=== PATIENT | male | born 1960 | race Caucasian/White ===

== ENCOUNTER 2018-05-13 21:32 | Emergency (ER) | payer OTHER ==
[~2018-05-13] VITALS: Ht 167.6 cm; Wt 83.9 kg
[2018-05-13 22:00] VITALS: BP_SYST 178
[2018-05-13] MEDS ORDERED: NACL 0.9% 1,000 ML IV ONE ×2 (22:15→23:30)
[2018-05-13 22:48] LABS: BASOPHILS # (AUTO) 0.1 K/uL (0.0-0.2); BASOPHILS % (AUTO) 1.3 % (0.0-2.0); EOSINOPHILS # (AUTO) 0.1 K/uL (0.0-0.4); HEMATOCRIT 42.9 % (36-54); HEMOGLOBIN 14.6 g/dL (14.0-18.0); LYMPHOCYTES # (AUTO) 1.2 K/uL (1.0-5.5); LYMPHOCYTES % (AUTO) 27.5 % (20.5-51.5); MEAN CORPUSCULAR HEMOGLOBIN 35 pg (27-31); MEAN CORPUSCULAR HGB CONC 34 % (32-36); MEAN CORPUSCULAR VOLUME 101 fL (79.0-98.0); MONOCYTES # (AUTO) 0.4 K/uL (0.0-1.0); MONOCYTES % (AUTO) 10.1 % (1.7-9.3); NEUTROPHILS # (AUTO) 2.4 K/uL (1.8-7.7); NEUTROPHILS % (AUTO) 58.1 % (40.0-70.0); PLATELET COUNT (AUTO) 166 K/uL (130-430); RED BLOOD CELL COUNT(AUTO) 4.23 MIL/uL (4.2-6.2); RED CELL DISTRIBUTION WIDTH 11.8 % (9.0-15.0); WHITE BLOOD COUNT (AUTO) 4.2 K/uL (4.8-10.8)
[2018-05-13 22:49] LABS: CREATININE 1.08 mg/dL (0.55-1.30); POTASSIUM 4.1 mmol/L (3.5-5.1)
[2018-05-13] MEDS ORDERED: LORazepam 2 MG/ML VIAL (FOR ER USE) IVP ONE (23:30)
[2018-05-14 01:01] VITALS: BP_SYST 147
== END 2018-05-14 01:01 | disposition home or self-care (01) ==
LOC: SED 21:32
DX: R53.1 Weakness (principal); I10 Essential (primary) hypertension; F17.210 Nicotine dependence, cigarettes, uncomplicated; Z88.5 Allergy status to narcotic agent
CPT/HCPCS: 36415; 70450; 80048; 85025; 96361; 96374; 99285; J2060; J7030

== ENCOUNTER 2018-06-17 08:44 | Inpatient (IN) | payer OTHER ==
[~2018-06-17] VITALS: Ht 167.6 cm; Wt 83.9 kg
[2018-06-17 08:44] VITALS: BP_SYST 193
--- NOTE | 2018-06-17 08:44 | NUR ---
Pt c/o of being parched, shaking, feeling very odd since this AM. Pt states I drink 90 oz of water every day. Hx of dehydration "I never want to go through that again."
--- NOTE | 2018-06-17 08:44 | NUR ---
BROUGHT BACK TO BED #1 AND TRIAGED. REPORT GIVEN TO LOPEZ
--- NOTE | 2018-06-17 08:50 | NUR ---
Dr. Bauman at bedside.
--- NOTE | 2018-06-17 08:55 | NUR ---
# 20 gauge angiocath placed to LAC. Use of asceptic technique. Opsite placed over site. Blood return noted. Blood for lab drawn from site. Flushed with 10 cc of normal saline. No evidence of infiltration noted. Patient tolerated well.
[2018-06-17] MEDS ORDERED: ASPIRIN 81 MG TAB.CHEW PO ONE (09:00)
[2018-06-17] MEDS ORDERED: NITROGLYCERIN 1 INCH (GM) OINT. TP ONE (09:00)
[2018-06-17] MEDS ORDERED: LORazepam 2 MG/ML VIAL (FOR ER USE) IVP ONE ×2 (09:00→12:15)
--- NOTE | 2018-06-17 09:11 | NUR ---
X-ray at bedside.
[2018-06-17 09:20] LABS: BASOPHILS # (AUTO) 0.1 K/uL (0.0-0.2); BASOPHILS % (AUTO) 1.4 % (0.0-2.0); EOSINOPHILS # (AUTO) 0.1 K/uL (0.0-0.4); EOSINOPHILS % (AUTO) 2.8 % (0.0-4.0); HEMATOCRIT 50.1 % (36-54); HEMOGLOBIN 16.7 g/dL (14.0-18.0); LYMPHOCYTES # (AUTO) 1.3 K/uL (1.0-5.5); LYMPHOCYTES % (AUTO) 29.8 % (20.5-51.5); MEAN CORPUSCULAR HEMOGLOBIN 34 pg (27-31); MEAN CORPUSCULAR HGB CONC 33 % (32-36); MEAN CORPUSCULAR VOLUME 103 fL (79.0-98.0); MONOCYTES # (AUTO) 0.5 K/uL (0.0-1.0); MONOCYTES % (AUTO) 11.3 % (1.7-9.3); NEUTROPHILS # (AUTO) 2.4 K/uL (1.8-7.7); NEUTROPHILS % (AUTO) 54.7 % (40.0-70.0); PLATELET COUNT (AUTO) 181 K/uL (130-430); RED BLOOD CELL COUNT(AUTO) 4.86 MIL/uL (4.2-6.2); RED CELL DISTRIBUTION WIDTH 11.8 % (9.0-15.0); WHITE BLOOD COUNT (AUTO) 4.4 K/uL (4.8-10.8)
[2018-06-17 09:21] LABS: ANION GAP 3 (5-15); CALCIUM 9.5 mg/dL (8.4-11.0); CHLORIDE 104 mmol/L (98-107); CREATININE 1.11 mg/dL (0.55-1.30); GFR AFRICAN AMERICAN 87 mL/min (>90); GLUCOSE 107 mg/dL (70-99); POTASSIUM 3.8 mmol/L (3.5-5.1); SODIUM SERUM 137 mmol/L (136-145); UREA NITROGEN, BLOOD 18 mg/dL (8-21)
[2018-06-17 09:24] LABS: PROTHROMBIN TIME 9.9 SECS (9.5-12.5)
[2018-06-17 09:37] LABS: ALANINE AMINOTRANSFERASE 29 U/L (12-78); ALBUMIN 4.2 g/dL (3.4-4.8); ASPARTATE AMINOTRANSFERASE 16 U/L (10-37); FREE T4 (FREE THYROXINE) 0.6 ng/dL (0.6-1.6); THYROID STIMULATING HORMONE 1.08 uIu/mL (0.34-4.82); TOTAL BILIRUBIN 0.6 mg/dL (0.0-1.0)
[2018-06-17 09:42] LABS: ALCOHOL, BLOOD < 3 mg/dL (<10)
--- NOTE | 2018-06-17 11:12 | NUR ---
PT AMBULATING IN ER WITH STEADY GAIT. AT BEDSIDE FOR SUPPORT
--- NOTE | 2018-06-17 11:26 | NUR ---
DR COLON SPEAKING WITH PT AND RE: TEST RESULTS
[2018-06-17] MEDS ORDERED: MECLIZINE HCL 25 MG TABLET (ANITVERT) PO ONE (11:45)
--- NOTE | 2018-06-17 11:50 | NUR ---
Pt states that he wants to be admitted to the hospital. Dr. Bauman made aware.
--- NOTE | 2018-06-17 12:04 | NUR ---
Pt c/o shakiness and feeling anxious. Dr. Bauman at bedside. VSS.
[2018-06-17] MEDS ORDERED: 5-HY50CA2 PO (12:10)
[2018-06-17] MEDS ORDERED: VITA1CAP PO (12:10)
[2018-06-17] MEDS ORDERED: [UNRECOGNIZED DRUG - CODE] PO (12:10)
[2018-06-17] MEDS ORDERED: VITD400 PO (12:10)
[2018-06-17] MEDS ORDERED: ASCO500T20 PO (12:10)
--- NOTE | 2018-06-17 12:13 | NUR ---
Mdeication reconciliation completed based upon the patients recollection of medications taken at home. Dosages are not available.
--- NOTE | 2018-06-17 12:20 | NUR ---
Pt to CT via stretcher, denies c/o C/P or SOB.
--- NOTE | 2018-06-17 13:07 | NUR ---
ADMISSION NOTE Received patient from ER via josias, received report from Will PERKINS. Patient admitted with diagnosis of Near syncope/jaw pain.. Patient oriented to hospital routine, call light, toileting and safety-patient verbalized understanding.
--- NOTE | 2018-06-17 13:10 | NUR ---
Patient will be admitted to care of Dr. Solis. Admitted to Tele unit. Will go to room 116A. Belongings list completed. Summary report printed. Bedside report given to GREGORIO Chu.
[2018-06-17 13:17] VITALS: BP_SYST 121
[2018-06-17 13:47] VITALS: BP_SYST 123
[2018-06-17 13:48] VITALS: BP_SYST 121
--- NOTE | 2018-06-17 14:04 | NUR ---
CONSULTATION PAGED REASON FOR CONSULTATION:NEAR SYNCOPE WAS CONSULT CALLED?Y PERSON WHO WAS NOTIFIED:WONG CONSULTING PHYSICIAN:DONNA SALDANA PASTORAL MINISTRIES PROFESSOR SPECIALTY:CARDIO PASTORAL MINISTRIES PROFESSOR PHONE NUMBER:[phone] ORDERING PHYSICIAN:JOLEEN KIRKLAND
--- NOTE | 2018-06-17 14:17 | NUR ---
CONSULTATION PAGED REASON FOR CONSULTATION:NEAR SYNCOPE WAS CONSULT CALLED?Y PERSON WHO WAS NOTIFIED:WONG CONSULTING PHYSICIAN:JERMAN BARRETO TEAM TRUCK DRIVER SPECIALTY:NEURP TEAM TRUCK DRIVER PHONE NUMBER:[phone] ORDERING PHYSICIAN[facility]
[2018-06-17 16:02] VITALS: BP_SYST 134
--- NOTE | 2018-06-17 16:08 | NUR ---
DR. NEIL IS SEEING THE PATIENT. POC IS EXPLAINED TO PATIENT. WILL CONTINUE TO MONITOR.
--- NOTE | 2018-06-17 18:27 | NUR ---
PATIENT IS SEEN EATING DINNER. SR ON MONITOR. NO SIGNS OF DISTRESS NOTED AT THIS TIME.
--- NOTE | 2018-06-17 19:12 | NUR ---
Initial Notes Received patient in bed awake with at bedside. Patient is alert awake oriented x4. All extremities are strong, BR. IV to L a/c g20 no infiltrate and with good blood return. Discuss plan of care with patient and verbalize understanding, will cont to monitor.
[2018-06-17 19:15] VITALS: BP_SYST 107
--- NOTE | 2018-06-17 21:15 | NUR ---
Rounds Patient is resting at this time. No c/o pain and no s/s of any distress noted. Call light in reach, will cont to monitor.
[2018-06-17 22:13] LABS: BILIRUBIN,URINE NEGATIVE (NEGATIVE); BLOOD, URINE NEGATIVE (NEGATIVE); CLARITY/URINE CLEAR (CLEAR); COLOR,URINE YELLOW (YELLOW); GLUCOSE,URINE NEGATIVE (NEGATIVE); KETONES,URINE NEGATIVE (NEGATIVE); LEUKOCYTE ESTERASE ,URINE NEGATIVE (NEGATIVE); NITRITE, URINE NEGATIVE (NEGATIVE); PROTEIN URINE NEGATIVE (NEGATIVE); UROBILINOGEN,URINE 0.2 (0.2-1.0)
[2018-06-17 22:25] LABS: BARBITURATE, URINE NEGATIVE (NEG <=200); BENZODIAZEPINE, URINE POSITIVE (NEG <=150); CANNABINOID, URINE POSITIVE (NEG <=50); COCAINE, URINE NEGATIVE (NEG <=150); METHAMPHETAMINES SCREEN,URINE NEGATIVE (NEG <=500); OPIATE, URINE NEGATIVE (NEG <=100); PHENCYCLIDINE SCREEN,URINE NEGATIVE (NEG <=25); UR TRICYCLIC ANTIDEPRESSANTS NEGATIVE (NEG <=300); URINE AMPHETAMINE NEGATIVE (NEG <=500); URINE METHADONE NEGATIVE (NEG <=200); URINE OXYCODONE SCREEN NEGATIVE (NEG <=100); URINE PROPOXYPHENE SCREEN NEGATIVE (NEG <=300)
--- NOTE | 2018-06-17 23:15 | NUR ---
Rounds Patient is resting comfortably at this time. No c/o pain and no s/s of any distress noted. Call light in reach, will cont to monitor.
[2018-06-18 00:01] VITALS: BP_SYST 111
--- NOTE | 2018-06-18 01:15 | NUR ---
Rounds Assisted to bathroom and safely back to bed. No c/o pain and no s/s of any distress noted. Call light in reach, will cont to monitor.
--- NOTE | 2018-06-18 03:15 | NUR ---
Rounds Patient is resting comfortably in bed at this time. No c/o pain and no s/s of any distress noted. Call light in reach, will cont to monitor.
--- NOTE | 2018-06-18 05:57 | NUR ---
Refuse bed alarm Patient refuse bed alarm. "Im OK, Im not dizzy anymore" patient stated. Explain risk and benefits but patient still refuse. Respected patient's request. Placed call light in reach, will cont to monitor.
--- NOTE | 2018-06-18 06:40 | NUR ---
End of shift notes Patient is resting comfortably in bed at this time. No s/s of any distress noted. Patient been NPO after midnight .All needs met and anticipated by noc nurse. Side rails up x2 and bed in low position. Will endorse to AM shift.
[2018-06-18 06:59] LABS: BASOPHILS % (AUTO) 0.7 % (0.0-2.0); EOSINOPHILS # (AUTO) 0.2 K/uL (0.0-0.4); EOSINOPHILS % (AUTO) 2.5 % (0.0-4.0); HEMATOCRIT 44.5 % (36-54); LYMPHOCYTES # (AUTO) 1.7 K/uL (1.0-5.5); LYMPHOCYTES % (AUTO) 25.9 % (20.5-51.5); MEAN CORPUSCULAR HEMOGLOBIN 35 pg (27-31); MEAN CORPUSCULAR HGB CONC 34 % (32-36); MEAN CORPUSCULAR VOLUME 102 fL (79.0-98.0); MONOCYTES # (AUTO) 0.6 K/uL (0.0-1.0); MONOCYTES % (AUTO) 9.9 % (1.7-9.3); NEUTROPHILS # (AUTO) 3.9 K/uL (1.8-7.7); PLATELET COUNT (AUTO) 182 K/uL (130-430); RED BLOOD CELL COUNT(AUTO) 4.36 MIL/uL (4.2-6.2); WHITE BLOOD COUNT (AUTO) 6.4 K/uL (4.8-10.8)
[2018-06-18 07:16] LABS: CALCIUM 9.2 mg/dL (8.4-11.0); CREATININE 1.05 mg/dL (0.55-1.30); POTASSIUM 4.1 mmol/L (3.5-5.1); THYROID STIMULATING HORMONE 1.71 uIu/mL (0.34-4.82)
--- NOTE | 2018-06-18 07:48 | NUR ---
Opening Note received report from shift production supervisor RN, pt resting in bed, A&Ox4, respirations even and unlabored on room air, pt denies any dizziness or SOB, pain controlled at this time, no acute distress noted, IV site clean, dry, and intact, pt NPO awaiting abd US this AM, pt educated on use of call light and asked to call for assistance, call light use demonstrated, pt verbalized understanding, call light in reach, pt educated on use of bed alarm for pt safety, pt refusing bed alarm at this time, bed in low position, fall and aspiration precautions in place.
[2018-06-18 07:56] VITALS: BP_SYST 138
--- NOTE | 2018-06-18 08:30 | NUR ---
Called Radiology called radiology to follow up with abdominal US, per radiology they will pick pt up in next half hour, pt informed.
[2018-06-18 08:34] LABS: ERYTHROCYTE SEDIMENTATION RATE 3 MM/HR (0-15)
--- NOTE | 2018-06-18 09:39 | NUR ---
Notes abdominal US completed, pt tolerated well, no acute distress noted, pt provided breakfast tray, fall and aspiration precautions in place.
--- NOTE | 2018-06-18 10:10 | NUR ---
Dizziness/Anxiety/MD Rounds pt complaint of feeling dizzy and having anxiety, at bedside, BP 145/85, HR 66, O2Sat 98%, respirations 17, no acute distress noted, Dr. Ramirez roundlucille at this time, MD made aware of pt complaint of dizziness and anxiety and latest vital signs.
--- NOTE | 2018-06-18 10:18 | NUR ---
Paged paged Dr. Solis regarding pt complaint of anxiety, awaiting call back.
[2018-06-18] MEDS ORDERED: LORazepam 1 MG TABLET PO PRN (11:00)
[2018-06-18] MEDS ORDERED: MECLIZINE HCL 25 MG TABLET (ANITVERT) PO PRN (11:00)
--- NOTE | 2018-06-18 11:01 | NUR ---
Spoke with MD Spoke with Dr. Solis, made MD aware of pt complaint of anxiety and dizziness, new orders received, orders verified with telephone read back.
--- NOTE | 2018-06-18 11:30 | NUR ---
FOLLOW-UP ON CONSULTATION REASON FOR CONSULTATION:NEWAR SYNCOPE WAS CONSULT CALLED?Y PERSON WHO WAS NOTIFIED:MIS CONSULTING PHYSICIAN:MICHEAL BARRETO PULPER OPERATOR SPECIALTY:NEURO PULPER OPERATOR PHONE NUMBER:[phone] ORDERING PHYSICIAN:TERI KIRKLAND
--- NOTE | 2018-06-18 11:30 | NUR ---
MD Rounds Dr. Ramirez at bedside examining pt.
--- NOTE | 2018-06-18 11:40 | NUR ---
Medication pt complaint of anxiety and dizziness, PRN medications for anxiety and dizziness indicated, per Dr. Solis give ativan and antivert together now, pt and pt educated on medication use and side effects, pt and pt verbalized understanding, pt tolerated medication administration well, no acute distress noted, fall and aspiration precautions in place.
[2018-06-18 12:00] VITALS: BP_SYST 150
--- NOTE | 2018-06-18 12:20 | NUR ---
Notes US tech at bedside for 2D echo, pt tolerating well, no acute distress noted.
--- NOTE | 2018-06-18 12:40 | NUR ---
PAGED PAGED JERMAN BARRETO AT [phone] SPOKE WITH WHITNEY.
--- NOTE | 2018-06-18 12:43 | NUR ---
PAGED PAGED ASPEN GILL AT [phone] SPOKE WITH RAMSES.
--- NOTE | 2018-06-18 14:40 | NUR ---
RN Rounds pt resting in bed, respirations even and unlabored on room air, no acute distress noted, fall and aspiration precautions in place.
[2018-06-18 15:00] VITALS: BP_SYST 129
--- NOTE | 2018-06-18 15:40 | NUR ---
RN Rounds pt resting in bed, no acute distress noted, case management at bedside speaking with pt and pts , fall and aspiration precautions in place.
--- NOTE | 2018-06-18 17:22 | NUR ---
RN Rounds pt up in bed eating dinner, at bedside, pt reports pain,dizziness and anxiety are controlled, no acute distress noted, fall and aspiration precautions in place.
--- NOTE | 2018-06-18 18:45 | NUR ---
Closing Note/Refuse bed alarm pt resting in bed, A&Ox4, respirations even and unlabored on room air, pt reports pain, dizziness, and anxiety are controlled, no acute distress noted, IV site clean, dry, and intact, pt educated on use of call light and asked to call for assistance, pt verbalized understanding, call light in reach, pt educated on use of bed alarm for pt safety, pt refusing bed alarm, bed in low position, fall and aspiration precautions in place.
--- NOTE | 2018-06-18 19:20 | NUR ---
OPENING NOTE RECEIVED PT AND REPORT FROM DAY SHIFT NURSE. PT IS SLEEPING IN BED. NO S/S OF DISTRESS OR DISCOMFORT. PT ON ROOM AIR. IV INTACT AND SALINE LOCKED. PT ABLE TO VERBALIZE NEEDS. FALL AND SAFETY PRECAUTIONS IN PLACE. BED LOCKED IN LOWEST POSITION. CALL LIGHT WITH PT. WILL CONTINUE TO MONITOR.
[2018-06-18 20:00] VITALS: BP_SYST 121
--- NOTE | 2018-06-18 22:05 | NUR ---
ROUNDING NOTE PT IS SLEEPING IN BED. NO S/S OF DISTRESS OR DISCOMFORT. CALL LIGHT WITH PT. WILL CONTINUE TO MONITOR.
[2018-06-18 23:00] VITALS: BP_SYST 120
--- NOTE | 2018-06-19 00:50 | NUR ---
ROUNDING NOTE PT REMAINS ASLEEP. NO S/S OF ACUTE DISTRESS. CALL LIGHT WITH PT. WILL CONTINUE TO MONITOR.
--- NOTE | 2018-06-19 02:15 | NUR ---
ROUNDING NOTE PT RESTING WITH EYES CLOSED. NO S/S OF DISTRESS OR DISCOMFORT. CALL LIGHT WITH PT. WILL CONTINUE TO MONITOR.
--- NOTE | 2018-06-19 04:14 | NUR ---
ROUNDING NOTE REPLACED BATTERIES TO HEART MONITOR. PT DENIES ANY NEEDS. CALL LIGHT WITH PT. WILL CONTINUE TO MONITOR.
--- NOTE | 2018-06-19 06:26 | NUR ---
ROUNDING NOTE PT RESTING IN BED. NO S/S OF DISTRESS OR DISCOMFORT. CALL LIGHT WITH PT. WILL CONTINUE TO MONITOR.
--- NOTE | 2018-06-19 07:41 | NUR ---
CLOSING NOTE ENDORSED CARE AND REPORT TO DAY SHIFT. PT IS AWAKE IN CHAIR. NO S/S OF DISTRESS OR DISCOMFORT. PT IN STABLE CONDITION. ALL NEEDS MET THROUGHOUT SHIFT. NO SIGNIFICANT CHANGES TO NOTE. FALL AND SAFETY PRECAUTIONS IN PLACE. CALL LIGHT WITH PT.
[2018-06-19 08:00] VITALS: BP_SYST 139
--- NOTE | 2018-06-19 08:00 | NUR ---
Opening Note/Refuse bed alarm received report from night filler RN, pt resting in bed, A&Ox4, respirations even and unlabored on room air, pt denies any pain or SOB, pt reports dizziness and anxiety are controlled at this time, no acute distress noted, IV site clean, dry, and intact, pt educated on use of call light and asked to call for assistance, pt verbalized understanding, call light in reach, pt educated on use of bed alarm for pt safety, pt refusing bed alarm, bed in low position, at bedside, fall and aspiration precautions in place.
--- NOTE | 2018-06-19 08:10 | NUR ---
Ambulating in [place] pt seen ambulating in [place], steady gait noted, pt tolerating well.
--- NOTE | 2018-06-19 09:55 | NUR ---
to MRI pt taken to MRI via wheelchair, pt stable, no acute distress noted.
[2018-06-19] MEDS ORDERED: GADOPENTETATE DIMEGLUMINE 15 ML VIAL IV ONE (10:18)
--- NOTE | 2018-06-19 11:20 | NUR ---
back from MRI pt back from MRI, no acute distress noted, pt resting in bed, at bedside, fall and aspiration precautions in place.
--- NOTE | 2018-06-19 12:01 | NUR ---
PAGED PAGED LON KIRKLAND AT [phone] SPOKE WITH ASHA.
--- NOTE | 2018-06-19 12:17 | NUR ---
2ND PAGE OUT TO PAGELON MCMAHON AT [phone] SPOKE WITH ASHA.
--- NOTE | 2018-06-19 12:24 | NUR ---
Spoke with MD Spoke with Dr. Solis, made MD aware of pt complaint of pain 3/ to neck and head, new orders received, orders verified with telephone read back.
[2018-06-19 12:25] VITALS: BP_SYST 146
[2018-06-19] MEDS ORDERED: IBUPROFEN 800 MG TABLET PO PRN (12:30)
--- NOTE | 2018-06-19 12:51 | NUR ---
Pain Management/Medication pt complaint of pain 3/10 to back of neck, pt educated on use and side effects of PRN pain medication, pt verbalized understanding, tolerated medication administration well, no acute distress noted, fall and aspiration precautions in place.
--- NOTE | 2018-06-19 14:05 | NUR ---
Ambulating in [place] pt seen ambulating in [place], steady gait noted, pt tolerating well.
--- NOTE | 2018-06-19 15:50 | NUR ---
RN Rounds pt resting in bed, at bedside, pt reports pain, dizziness, and anxiety are controlled, no acute distress noted, fall and aspiration precautions in place.
[2018-06-19 16:00] VITALS: BP_SYST 159
--- NOTE | 2018-06-19 17:15 | NUR ---
Ambulating in [place] pt seen ambulating in [place] with , steady gait noted, pt tolerating well.
--- NOTE | 2018-06-19 19:00 | NUR ---
Closing Note/Refuse bed alarm pt resting in bed, A&Ox4, respirations even and unlabored on room air, pt reports pain, anxiety, and dizziness are controlled at this time, no acute distress noted, IV site clean, dry, and intact, at bedside, pt educated on use of call light and asked to call for assistance, pt verbalized understanding, call light in reach, pt educated on use of bed alarm for pt safety, pt refusing bed alarm, bed in low position, fall and aspiration precautions in place, care endorsed to Haylie PERKINS.
[2018-06-19 19:33] VITALS: BP_SYST 158
--- NOTE | 2018-06-19 20:15 | NUR ---
D/C Patient Patient given medication reconciliation form and D/C instructions. Exit Care provided. Patient verbalized understanding. MD discussed with patient the results and treatment provided. Ambulatory with steady gait for discharge to home. Patient in stable condition, ID band removed. IV catheter removed, intact and dressing applied, no active bleeding. Rx of given. Patient educated on pain management. All belongings sent with patient. with patient.
[2018-06-20 00:21] LABS: PROSTATE SPECIFIC AG TOTAL 0.3 ng/mL (0.0-4.0)
[2018-06-20 01:07] LABS: FREE PSA 0.12 ng/mL
[2018-06-20 07:08] LABS: FOLATE (FOLIC ACID) 11.9 ng/mL (>3.0)
== END 2018-06-19 20:15 | disposition home or self-care (01) | DRG 552 ==
LOC: SED 08:44 → STU 12:10
PROVIDERS: ADMIT Internal Medicine; ATTEND Internal Medicine
DX: M47.812 Spondylosis without myelopathy or radiculopathy, cervical region (principal); I10 Essential (primary) hypertension; F41.9 Anxiety disorder, unspecified; I65.29 Occlusion and stenosis of unspecified carotid artery; R55 Syncope and collapse; D75.89 Other specified diseases of blood and blood-forming organs; R68.84 Jaw pain; F17.290 Nicotine dependence, other tobacco product, uncomplicated; Z88.8 Allergy status to other drugs, medicaments and biological substances; Z79.899 Other long term (current) drug therapy; Z81.8 Family history of other mental and behavioral disorders
CPT/HCPCS: 36415; 70450-TC; 70553; 71045; 74018; 76700-TC; 80048; 80053; 80061; 80307; 81003; 82140-TC; 82607; 82746; 83735-TC; 83880; 84439; 84443-TC; 84484; 85025; 85610-TC; 85651-TC; 86140; 93005; 93306; 93880; 96374; 96375; 99285; A9579; G0103; G0482; J2060; J8597